=== PATIENT | female | born 1950 | race Two or more races ===

== ENCOUNTER → 2024-03-16 | Emergency (ER) | payer OTHER, BC ==
[~2024-03-16] VITALS: Ht 154.9 cm; Wt 63.5 kg
[~2024-03-16] MED LIST: ATORVASTATIN CA10 MG PO; FAMOTIDINE/PF 20 MG/2 ML VIAL IV ONE; PROMETHAZINE HCL 25 MG/ML AMPUL IM ONE
[2024-03-16 15:26] LABS: URINE APPEARANCE Clear; URINE BILIRRUBIN Negative (NEGATIVE); URINE BLOOD Negative; URINE COLOR Yellow; URINE GLUCOSE Negative (NEGATIVE); URINE KETONE Negative (NEGATIVE); URINE LEUKOCYTE Trace; URINE NITRATE Negative; URINE PROTEIN Negative (NEGATIVE); URINE UROBILINOGEN 0.2 E.U./dl
[2024-03-16 15:26] LABS: HEMATOCRIT 39.9 % (36.0-45.00); HEMOGLOBIN 13.4 g/dL (12.0-15.00); MEAN CELL VOLUME 93.7 fL (80.00-100.00); MEAN CORPUSCULAR HEMOGLOBIN 31.4 pg (27.00-32.0); MEAN CORPUSCULAR HGB CONC 33.5 g/dl (32.0-36.0); PLATELET COUNT 271 K/uL (150-450); RED BLOOD COUNT 4.26 M/uL (4.00-6.00); RED CELL DISTRIBUTION WIDTH 13.9 % (11.5-14.5)
[2024-03-16 15:31] LABS: URINE BACTERIA 151.7 uL (0.0-1933); URINE EPITHELIAL CELLS 11.3 uL (0.0-38.8); URINE WBC 21.6 uL (0.0-23.2)
[2024-03-16 15:50] LABS: CREATININE SERUM 0.69 mg/dL (0.55-1.02); GFR 82.94; POTASSIUM 4.28 mEq/L (3.5-5.1)
[2024-03-16 15:59] LABS: URINE CAST 0.29 uL (0.0-1.40); URINE RBC 1.3 uL (0.0-20.8)
== END | disposition home or self-care (01) ==
LOC: ER 12:41
PROVIDERS: General Practice
DX: R42 Dizziness and giddiness (principal); I10 Essential (primary) hypertension; Z88.1 Allergy status to other antibiotic agents
CPT/HCPCS: 36415; 96365; 96372; 99282; J3490 ×2